=== PATIENT | male | born 2000 | race Caucasian/White ===

== ENCOUNTER 2019-01-25 17:40 | Emergency (ER) | payer OTHER ==
--- NOTE | 2019-01-25 17:47 | PDOC ---
Rapid Medical Evaluation Chief Complaint: Pain Time Seen by Provider: 01/25/19 17:44 Medical Evaluation: Allergies Allergy/AdvReac Type Severity Reaction Status Date / Time No Known Allergies Allergy Verified 07/31/16 14:23 01/25/19 17:46 I have performed a brief in person evaluation of the patient. The patient presents with CC: pt complains of left jaw and left ear pain x 3 days. HPI: PE: Skin: Clear, no rash HEENT: Oropharynx clear Lungs: Mild expiratory wheezing Heart: RRR MS: Moves all extremities Neuro: Alert Psych: Appropriate affect The patient will proceed to [facility] for further evaluation. Discharge Disposition - Diagnosis Ear pain, left - Referrals - Patient Instructions - Post Discharge Activity
[2019-01-25 17:48] VITALS: BP 136/67; PULSE 76; TEMP 98.1; BMI 24.2
--- NOTE | 2019-01-25 18:19 | PDOC ---
History of Present Illness - General Chief Complaint: Pain Stated Complaint: LEFT EAR PAIN Time Seen by Provider: 01/25/19 17:44 - History of Present Illness Initial Comments: 01/25/19 18:17 18-year-old male with psych history presents for evaluation of 3 days of left ear pain without systemic symptoms. Past History - Past Medical History Allergies/Adverse Reactions: Allergies Allergy/AdvReac Type Severity Reaction Status Date / Time No Known Allergies Allergy Verified 01/25/19 18:17 Home Medications: Ambulatory Orders Atomoxetine HCl [Strattera -] 40 mg PO DAILY 04/29/14 Bupropion HCl [Wellbutrin -] 100 mg PO TID 04/29/14 Risperidone [Risperdal] 1 mg PO BID 04/29/14 Amox-Tr/K Cl [Augmentin - 875Mg Tablet] 1 tab PO BID #20 tablet 01/25/19 Asthma: Yes Psychiatric Problems: Yes ([facility]) - Surgical History Appendectomy: Yes - Immunization History Immunization Up to Date: Yes - Suicide/Smoking/Psychosocial Hx Smoking History: Never smoked Have you smoked in the past 12 months: No Information on smoking cessation initiated: No Hx Alcohol Use: No Drug/Substance Use Hx: No Substance Use Type: None Review of Systems - Review of Systems Constitutional: No: Fever HEENTM: Yes: Ear Pain *Physical Exam - Vital Signs Last Vital Signs Temp Pulse Resp BP Pulse Ox 98.1 F 76 18 136/67 100 01/25/19 17:45 01/25/19 17:45 01/25/19 17:45 01/25/19 17:45 01/25/19 17:45 - Physical Exam Comments: 01/25/19 18:17 HEAD: NC/AT EYES: Conjuntiva clear Ears: Right ear canal and tympanic membrane are normal. Left ear canal is mildly erythematous without discharge tympanic membrane is erythemic and retracted without light reflex NOSE: No d/c THROAT: Moist mucous membrances, oral pharanx clear, uvula midline NECK: Supple without adenopathy CARDIAC: S1 S2 LUNGS: CTA Full and Equal breath sounds ABDOMEN: Soft NT ND MS: Full ROM in all joints without edema NEUROLOGIC: No gross sensory or motor deficits, NVID SKIN: Normal color and temperature no lesions or rashes Medical Decision Making - Medical Decision Making 01/25/19 18:18 Augmentin for this otitis media *DC/Admit/Observation/Transfer Diagnosis at time of Disposition: Ear pain, left, Otitis media - Discharge Dispostion Disposition: HOME Condition at time of disposition: Stable Decision to Admit order: No - Referrals Referrals: Giovani Mcgee MD [Staff Physician] - - Patient Instructions Printed Discharge Instructions: Middle Ear Infection Additional Instructions: Please take the antibiotics as directed and finish the entire 10 day course. Return to the emergency room should symptoms worsen and follow-up with ear nose and throat doctor in 1-2 days for further evaluation and treatment options. Tylenol and Motrin as directed for pain. Please eat yogurt with live cultures as well his take probiotics while on the antibiotics. - Post Discharge Activity
== END 2019-01-25 18:24 | disposition home or self-care (01) ==
LOC: JERFT 17:40 → JER 17:40 → JERFT 18:24
DX: H92.02 Otalgia, left ear (principal); H66.92 Otitis media, unspecified, left ear; J45.909 Unspecified asthma, uncomplicated; F99 Mental disorder, not otherwise specified
CPT/HCPCS: 99281-25